=== PATIENT | male | born 1990 | race Two or more races ===

== ENCOUNTER 2023-12-18 16:29 | Emergency (ER) | payer OTHER ==
[~2023-12-18] VITALS: Ht 172.7 cm; Wt 77.1 kg
[2023-12-18 18:35] LABS: HEMOGLOBIN 15.8 g/dL (13-16.00); MEAN CELL VOLUME 91.4 fL (80.0-100.00); MEAN CORPUSCULAR HEMOGLOBIN 32.1 pg (27.00-32.0); MEAN CORPUSCULAR HGB CONC 35.1 g/dl (32.0-36.0); PLATELET COUNT 172 K/uL (150-450); RED BLOOD COUNT 4.92 M/uL (4.00-6.00); RED CELL DISTRIBUTION WIDTH 13.5 % (11.5-14.5)
== END 2023-12-18 19:49 | disposition home or self-care (01) ==
LOC: ER 16:29
PROVIDERS: General Practice
DX: B34.9 Viral infection, unspecified (principal); R53.81 Other malaise; Z20.822 Contact with and (suspected) exposure to COVID-19

== ENCOUNTER 2024-12-08 14:38 | Emergency (ER) | payer OTHER ==
[~2024-12-08] VITALS: Ht 177.8 cm; Wt 86.2 kg
[2024-12-08] MEDS ORDERED: ORPHENADRINE CITRATE 30 MG/ML AMPUL IM STA (16:42)
[2024-12-08] MEDS ORDERED: DEXAMETHASONE SODIUM PHOSPHATE 4 MG/ML VIAL IM STA (16:42)
[2024-12-08] MEDS ORDERED: KETOROLAC TROMETHAMINE 30 MG VIAL IM STA (16:43)
[2024-12-08] MEDS ORDERED: ORPHENADRINE CITRATE 30 MG/ML AMPUL ONE (17:15)
[2024-12-08] MEDS ORDERED: DEXAMETHASONE SODIUM PHOSPHATE 4 MG/ML VIAL ONE (17:16)
[2024-12-08] MEDS ORDERED: KETOROLAC TROMETHAMINE 30 MG VIAL ONE (17:16)
[2024-12-08] MEDS ORDERED: NORFLEX100MG PO (18:47)
[2024-12-08] MEDS ORDERED: IBU800 MG PO (18:47)
== END 2024-12-08 19:21 | disposition home or self-care (01) ==
LOC: ER 14:41
DX: M62.838 Other muscle spasm (principal)